=== PATIENT | female | born 1970 | race Asian ===

== ENCOUNTER 2021-10-23 00:18 | Emergency (ER) | payer OTHER ==
[~2021-10-23] VITALS: Ht 154.9 cm; Wt 68.2 kg
[2021-10-23 01:53] LABS: COVID AG,FIA SOURCE NASAL SWAB
[2021-10-23 02:12] LABS: INFLUENZA TYPE A NEGATIVE FOR TYPE A (NEGATIVE); INFLUENZA TYPE B NEGATIVE FOR TYPE B (NEGATIVE)
[2021-10-23] MEDS ORDERED: LORazepam 1 MG TABLET PO ONE (02:30)
[2021-10-23 03:58] VITALS: BP 142/76
== END 2021-10-23 04:06 | disposition home or self-care (01) ==
LOC: EMS 00:20
DX: F41.9 Anxiety disorder, unspecified (principal); I10 Essential (primary) hypertension; Z20.822 Contact with and (suspected) exposure to COVID-19
CPT/HCPCS: 87804; 99283